=== PATIENT | male | born 1955 | race Caucasian/White ===

== ENCOUNTER → 2021-11-09 | Outpatient (CLI) | payer OTHER | LOC: HEART 5 09:54 | DX: J44.9 Chronic obstructive pulmonary disease, unspecified (principal); R94.2 Abnormal results of pulmonary function studies | CPT/HCPCS: 94010 ==

== ENCOUNTER → 2021-11-09 | Outpatient (CLI) | payer OTHER | LOC: RAD 12:04 | DX: Z98.61 Coronary angioplasty status (principal) | CPT/HCPCS: 71046 ==

== ENCOUNTER → 2021-11-13 | Outpatient (CLI) | payer OTHER | LOC: KOH-I 12:29 | DX: M50.31 Other cervical disc degeneration, high cervical region (principal); M51.36 Other intervertebral disc degeneration, lumbar region; I25.10 Atherosclerotic heart disease of native coronary artery without angina pectoris; M19.90 Unspecified osteoarthritis, unspecified site; M47.814 Spondylosis without myelopathy or radiculopathy, thoracic region; J44.9 Chronic obstructive pulmonary disease, unspecified | CPT/HCPCS: 72040; 72070; 72100 ==

== ENCOUNTER → 2021-12-11 | Outpatient (CLI) | payer OTHER | LOC: KOH-I 10:59 | DX: Z87.891 Personal history of nicotine dependence (principal); R91.1 Solitary pulmonary nodule | CPT/HCPCS: 71271 ==